=== PATIENT | female | born 1980 | race African-American/Black ===

== ENCOUNTER 2016-12-17 18:49 | Outpatient (CLI) | payer SELFPAY ==
--- NOTE | 2016-12-17 19:28 | Non Stress Test Report ---
Non Stress Test Datetime Report Generated by CPN: 12/17/2016 19:27 INDICATION Indication for Study: Decreased Movement; Ordered by Provider VITAL SIGNS Temperature - NST: 99.4 Pulse - NST: 88 RESP - NST: 18 NBPSYS NST: 132 NBPDIA NST: 76 MONITORING Monitor Explained: Monitor Explained; Test Explained; Patient Verbalized Understanding Time on Monitor: 12/17/2016 18:54 Time off Monitor: 12/17/2016 19:20 NST Duration: 26 NST INTERVENTIONS NST Interventions: Reposition Patient Physician Notified NST: Dr. Fox BABY A: [id number] BABY A Movement : Present Contraction Frequency : x1 FHR Baseline : 145 Accelerations : 15X15 Decelerations : None Variability : Moderate 6-25bpm NST Review: Meets Criteria for Reactive NST NST Review and Verified By : NATALEE Campbell NST Results: Reactive NST REPORT Report Trigger: Send Report
== END 2016-12-17 19:27 | disposition home or self-care (01) ==
LOC: LC 18:49
PROVIDERS: ATTEND Obstetrics & Gynecology
PROC: 4A1HXCZ Monitoring of Products of Conception, Cardiac Rate, External Approach (ICD-10-PCS; principal; 2016-12-17)
DX: O36.8130 Decreased fetal movements, third trimester, not applicable or unspecified (principal); O09.523 Supervision of elderly multigravida, third trimester; Z3A.38 38 weeks gestation of pregnancy
CPT/HCPCS: 59025

== ENCOUNTER 2016-12-20 15:40 | Outpatient (CLI) | payer OTHER ==
[2016-12-20 16:39] LABS: APPEARANCE,URINE CLEAR; BILIRUBIN,URINE NEGATIVE (NEGATIVE); GLUCOSE, URINE NEGATIVE (NEGATIVE); KETONES,URINE NEGATIVE (NEGATIVE); LEUKOCYTE ESTERASE,URINE NEGATIVE (NEGATIVE); NITRITE,URINE NEGATIVE (NEGATIVE); PROTEIN,URINE NEGATIVE (NEGATIVE); URINE SPECIFIC GRAVITY 1.012; UROBILINOGEN,URINE NEGATIVE mg/dL (<2.0)
[2016-12-20 16:54] LABS: URINE BARBITURATES SCREEN NEGATIVE; URINE METHADONE SCREEN NEGATIVE; URINE OPIATES LOW NEGATIVE; URINE PHENCYCLIDINE SCREEN NEGATIVE
== END 2016-12-20 17:12 | disposition home or self-care (01) ==
LOC: LC 15:40
PROVIDERS: ATTEND Obstetrics & Gynecology
PROC: 4A1HXCZ Monitoring of Products of Conception, Cardiac Rate, External Approach (ICD-10-PCS; principal; 2016-12-20)
DX: O09.523 Supervision of elderly multigravida, third trimester (principal); Z3A.39 39 weeks gestation of pregnancy
CPT/HCPCS: 59025; 80307; 81001

== ENCOUNTER 2016-12-27 12:40 | Outpatient (CLI) | payer OTHER ==
[2016-12-27 13:04] LABS: APPEARANCE,URINE SLIGHTLY-CLOUDY; BILIRUBIN,URINE NEGATIVE (NEGATIVE); GLUCOSE, URINE NEGATIVE (NEGATIVE); KETONES,URINE NEGATIVE (NEGATIVE); LEUKOCYTE ESTERASE,URINE TRACE (NEGATIVE); NITRITE,URINE NEGATIVE (NEGATIVE); PROTEIN,URINE NEGATIVE (NEGATIVE); URINE SPECIFIC GRAVITY 1.011; UROBILINOGEN,URINE NEGATIVE mg/dL (<2.0)
[2016-12-27 13:21] LABS: URINE BARBITURATES SCREEN NEGATIVE; URINE METHADONE SCREEN NEGATIVE; URINE OPIATES LOW NEGATIVE; URINE PHENCYCLIDINE SCREEN NEGATIVE
--- NOTE | 2016-12-27 13:30 | Non Stress Test Report ---
Non Stress Test Datetime Report Generated by CPN: 12/27/2016 13:29 DEMOGRAPHIC EGA NST: 40.2 EGA NST: 39.2 EGA NST: 38.6 INDICATION Indication for Study: Other Indication for Study (NST) Other: LC Indication for Study (NST) Other: LABOR CHECK MONITORING Monitor Explained: Monitor Explained; Test Explained; Patient Verbalized Understanding Monitor Explained: Monitor Explained; Test Explained; Patient Verbalized Understanding Time on Monitor: 12/27/2016 13:00 Time on Monitor: 12/20/2016 16:18 Time off Monitor: 12/27/2016 13:28 Time off Monitor: 12/20/2016 17:14 NST Duration: 28 NST Duration: 56 NST INTERVENTIONS NST Interventions: PO Hydration; Reposition Patient NST Interventions: PO Hydration; Reposition Patient Physician Notified NST: Dr Marshall Physician Notified NST: STRIP REVIEWED BY DR FALCON BABY A: [id number] BABY A Movement : Present Movement : Present Contraction Frequency : RARE FHR Baseline : 145 FHR Baseline : 140 Accelerations : 15X15 Accelerations : 15X15 Decelerations : None Decelerations : None Variability : Moderate 6-25bpm Variability : Moderate 6-25bpm NST Review: Meets Criteria for Reactive NST NST Review: Meets Criteria for Reactive NST NST Review and Verified By : Neli Moreno RN NST Review and Verified By : Herrera Landon RNC NST Results: Reactive NST Results: Reactive NST REPORT Report Trigger: Send Report
== END 2016-12-27 13:37 | disposition home or self-care (01) ==
LOC: LC 12:40
PROVIDERS: ATTEND Obstetrics & Gynecology
PROC: 4A1HXCZ Monitoring of Products of Conception, Cardiac Rate, External Approach (ICD-10-PCS; principal; 2016-12-27)
DX: O47.1 False labor at or after 37 completed weeks of gestation (principal); O09.523 Supervision of elderly multigravida, third trimester; Z3A.40 40 weeks gestation of pregnancy
CPT/HCPCS: 59025; 80307; 81005

== ENCOUNTER 2016-12-29 10:08 | Outpatient (CLI) | payer OTHER ==
--- NOTE | 2016-12-29 10:49 | Non Stress Test Report ---
Non Stress Test Datetime Report Generated by CPN: 12/29/2016 10:49 DEMOGRAPHIC EGA NST: 40.4 INDICATION Indication for Study: Decreased Movement; Ordered by Provider MONITORING Monitor Explained: Monitor Explained; Test Explained; Patient Verbalized Understanding Time on Monitor: 12/29/2016 10:20 Time off Monitor: 12/29/2016 10:44 NST Duration: 24 NST INTERVENTIONS NST Interventions: PO Hydration; Reposition Patient Physician Notified NST: Dr. Way BABY A: [id number] BABY A Movement : Present Contraction Frequency : none FHR Baseline : 145 Accelerations : 15X15 Decelerations : None Variability : Moderate 6-25bpm NST Review: Meets Criteria for Reactive NST NST Review and Verified By : Steph Wright RN NST Results: Reactive NST REPORT Report Trigger: Send Report
== END 2016-12-29 10:48 | disposition home or self-care (01) ==
LOC: LC 10:08
PROVIDERS: ATTEND Obstetrics & Gynecology
PROC: 4A1HXCZ Monitoring of Products of Conception, Cardiac Rate, External Approach (ICD-10-PCS; principal; 2016-12-29)
DX: O36.8130 Decreased fetal movements, third trimester, not applicable or unspecified (principal); Z3A.40 40 weeks gestation of pregnancy
CPT/HCPCS: 59025

== ENCOUNTER 2017-01-02 19:46 | Inpatient (IN) | payer OTHER ==
[2017-01-02] MEDS ORDERED: ZOLPIDEM TARTRATE 5 MG TABLET PO PRN (20:02)
[2017-01-02] MEDS ORDERED: MAG HYDROX/AL HYDROX/SIMETH SUSP 30 ML UDCUP PO PRN (20:02)
[2017-01-02] MEDS ORDERED: ACETAMINOPHEN 325 MG TABLET PO PRN (20:02)
[2017-01-02] MEDS ORDERED: DINOPROSTONE 10 MG VAGINAL INSERT.SR PV PRN (20:04)
[2017-01-02] MEDS ORDERED: DINOPROSTONE 10 MG VAGINAL INSERT.SR PV ONE (20:45)
[2017-01-02] MEDS ORDERED: RINGERS SOLUTION,LACTATED 300 ML IV ONE (20:45)
[2017-01-02] MEDS ORDERED: DINOPROSTONE 10 MG VAGINAL INSERT.SR ONE (20:49)
[2017-01-02] MEDS ORDERED: PENICILLIN G POTASSIUM 5,000,000 UNIT in DEXTROSE 5%-WATER 100 ML IV ONE (21:00)
[2017-01-02 21:07] LABS: ABSOLUTE EOSINOPHILS # (AUTO) 0.1 10^3/uL (0.0-0.6); ABSOLUTE LYMPHOCYTES (AUTO) 1.5 10^3/uL (0.5-4.7); ABSOLUTE MONOCYTES (AUTO) 0.8 10^3/uL (0.1-1.4); ABSOLUTE NEUT (AUTO) 3.8 10^3/uL (1.7-8.2); BASOPHILS % (AUTO) 0.6 % (0-2); EOSINOPHILS % (AUTO) 1.7 % (0-6); HEMATOCRIT 33.6 % (36.0-47.0); HEMOGLOBIN 10.4 g/dL (12.0-15.5); HGB HCT DIFFERENCE -2.4; MEAN CORPUSCULAR HEMOGLOBIN 22.2 pg (27.0-33.4); MEAN CORPUSCULAR HGB CONC 30.9 g/dL (32.0-36.0); MEAN CORPUSCULAR VOLUME 72 fl (80-97); MONOCYTES % (AUTO) 12.4 % (3-13); RED BLOOD COUNT 4.69 10^6/uL (3.72-5.28); RED CELL DISTRIBUTION WIDTH 30.7 % (11.5-14.0); SEGMENTED NEUTROPHILS % (AUTO) 61.3 % (42-78); WHITE BLOOD COUNT 6.2 10^3/uL (4.0-10.5)
[2017-01-02 21:18] LABS: APPEARANCE,URINE CLOUDY; BILIRUBIN,URINE NEGATIVE (NEGATIVE); GLUCOSE, URINE NEGATIVE (NEGATIVE); KETONES,URINE NEGATIVE (NEGATIVE); LEUKOCYTE ESTERASE,URINE TRACE (NEGATIVE); NITRITE,URINE NEGATIVE (NEGATIVE); PROTEIN,URINE 30 mg/dL (NEGATIVE); URINE SPECIFIC GRAVITY 1.027; UROBILINOGEN,URINE NEGATIVE mg/dL (<2.0)
[2017-01-02 21:19] LABS: ANISOCYTOSIS 4+; BURR CELLS SLIGHT; HYPOCHROMASIA 1+; MICROCYTOSIS 1+; OVALOCYTES 1+; PLATELET CLUMPS PRESENT; POIKILOCYTOSIS SLIGHT; POLYCHROMASIA SLIGHT; TARGET CELLS SLIGHT; TEAR DROP CELLS 1+
[2017-01-02 21:35] LABS: URINE BARBITURATES SCREEN NEGATIVE; URINE METHADONE SCREEN NEGATIVE; URINE OPIATES LOW NEGATIVE; URINE PHENCYCLIDINE SCREEN NEGATIVE
[2017-01-02] MEDS ORDERED: ZOLPIDEM TARTRATE 5 MG TABLET ONE (23:12)
[2017-01-03] MEDS ORDERED: PENICILLIN G-K 5 MILLION UNIT VIAL IV PRN
[2017-01-03] MEDS ORDERED: PENICILLIN G POTASSIUM 2,500,000 UNIT in DEXTROSE 5%-WATER 50 ML IV SCH (01:00)
[2017-01-03] MEDS: RINGERS SOLUTION,LACTATED 1,000 ML IV PRN ×2 (04:08→23:19)
[2017-01-03] MEDS ORDERED: PENICILLIN G-K 5 MILLION UNIT VIAL ONE ×4 (08:47→22:24)
[2017-01-03] MEDS ORDERED: OXYTOCIN/NORMAL SALINE 20 UNIT/1,000 ML RTUINJ ONE (08:47)
[2017-01-03] MEDS ORDERED: EPHEDRINE SULFATE INJ 50 MG/1 ML AMPULE ONE (13:35)
[2017-01-03] MEDS ORDERED: BUPIVACAINE HCL 0.25 % INJ/PF (2.5 MG/1 ML) 30 ML VIAL ONE (13:36)
[2017-01-03] MEDS ORDERED: FENTANYL/BUPIVACAINE/NS/PF 200 MCG/100 ML RTUINJ EPI ONE (13:36)
[2017-01-03] MEDS ORDERED: MISOPROSTOL 0.2 MG TABLET ONE (15:30)
[2017-01-03] MEDS ORDERED: LIDOCAINE 1% INJ-PF (10 MG/ML) 30 ML SDV ONE (15:30)
--- NOTE | 2017-01-03 15:49 | L&D Progress Notes ---
PROGRESS NOTES Datetime Report Generated by CPN: 01/03/2017 15:49 PROGRESS NOTE Impression: Reassuring Heart Rate Procedures: Intrauterine Pressure Catheter; Sterile Vag Exam Plan: Continue Present Management Comment: SVE as above. AROM clear fluid. Comfortable w epidural. VAGINAL EXAM Dilatation: 4 Dilatation: 1 Effacement: 50 Effacement: 50 Station: -2 Station: -2 MEMBRANES Pooling: Negative Membranes: Ruptured Membranes: Intact Amniotic Fluid Color: Clear FETUS A FHR - Baseline: 150 Monitoring: External US Variability: Marked >25bpm Accelerations: 15X15 Decelerations: Variable FHR Category: Category I : 41.2 : 41.0 SIGNATURE SIGNATURE: ,[id number];,[id number] SIGNATURE: [id number] SIGNATURE: ,[id number] SIGNATURE: [id number] Assignment: Jose Way DO Signature: with User ID: [email or web address] : with User ID: [email or web address] : I personally evaluated and examined the patient in conjunction with the MLP and agree with the assessment, treatment plan and disposition.
[2017-01-03] MEDS ORDERED: LIDOCAINE 2% INJ-PF (20 MG/ML) 10 ML AMPUL ONE (16:56)
[2017-01-03] MEDS ORDERED: DIPHENHYDRAMINE HCL 50 MG/ML VIAL ONE (18:50)
[2017-01-03] MEDS ORDERED: METHYLERGONOVINE MALEATE INJ/PF 0.2 MG/1 ML AMPULE ONE (19:32)
[2017-01-03] MEDS ORDERED: FENTANYL CITRATE INJ/PF 100 MCG/2 ML AMPUL ONE (19:46)
[2017-01-03] MEDS ORDERED: NALBUPHINE HCL INJ 10 MG/1 ML AMPULE ONE (21:08)
[2017-01-03] MEDS: PENICILLIN G-K 5 MILLION UNIT VIAL IV SCH ×2 (21:16→23:06)
[2017-01-04] MEDS: PENICILLIN G-K 5 MILLION UNIT VIAL IV SCH (02:24)
[2017-01-04] MEDS ORDERED: MISOPROSTOL 0.2 MG TABLET PR ONE (02:30)
[2017-01-04] MEDS ORDERED: BENZOCAINE/MENTHOL AEROSOL SPRAY 56 ML TOP PRN (03:33)
[2017-01-04] MEDS ORDERED: PROMETHAZINE HCL INJ 25 MG/1 ML VIAL IV PRN (03:33)
[2017-01-04] MEDS ORDERED: ACETAMINOPHEN 650 MG SUPP.RECT PR PRN (03:33)
[2017-01-04] MEDS ORDERED: PSEUDOEPHEDRINE HCL 30 MG TABLET PO PRN (03:33)
[2017-01-04] MEDS ORDERED: PROMETHAZINE HCL 25 MG SUPP.RECT PR PRN (03:33)
[2017-01-04] MEDS ORDERED: NA PHOS,M-B/NA PHOS,DI-BA (ADULT) 133 ML ENEMA PR PRN (03:33)
[2017-01-04] MEDS ORDERED: OXYTOCIN/NORMAL SALINE 1,000 ML IV PRN (03:33)
[2017-01-04] MEDS ORDERED: DIBUCAINE 1% OINTMENT 28 GM TP PRN (03:33)
[2017-01-04] MEDS ORDERED: PROMETHAZINE HCL 25 MG TABLET PO PRN (03:33)
[2017-01-04] MEDS ORDERED: ZOLPIDEM TARTRATE 5 MG TABLET PO PRN (03:33)
[2017-01-04] MEDS ORDERED: GLYCERIN/WITCH HAZEL LEAF 1 EACH MED..PAD TP PRN (03:33)
[2017-01-04] MEDS ORDERED: MEASLES,MUMPS&RUBELLA VACC/PF 0.5 ML VIAL SUBCUT PRN (03:33)
[2017-01-04] MEDS ORDERED: DIPHENHYDRAMINE HCL 25 MG CAPSULE PO PRN (03:33)
[2017-01-04] MEDS ORDERED: DIPH/PERTUSS(ACELL)/TETANUS VAC/PF 0.5 ML SYR (>=10YO) IM PRN (03:33)
[2017-01-04] MEDS ORDERED: MAGNESIUM HYDROXIDE SUSP 30 ML UDCUP PO PRN (03:33)
--- NOTE | 2017-01-04 04:09 | Admission Physical ---
Datetime Report Generated by CPN: 01/04/2017 04:09 CURRENT ADMISSION Chief Complaint: Scheduled Induction of Labor Indication for Induction: Post Dates Admit Plan: Admit to Unit; Initiate Labor Induction Protocol ALLERGIES Medication Allergies: No Medication Allergies: No Known Allergies (01/02/2017) Medication Allergies: No Known Allergies (12/29/2016) Medication Allergies: No Known Allergies (12/20/2016) Medication Allergies: No Known Allergies (09/30/2010) Latex: No Latex Allergies Food Allergies: N/A Environmental Allergies: N/A OBSTETRICAL HISTORY EDC: 12/25/2016 00:00 : 9 Para: 4 Term: 4 : 0 SAB: 1 IAB: 3 Ectopic: 0 Livin Cesareans: 0 VBACs: 0 Multiple Births: 0 Gestational Diabetes: No Rh Sensitization: No Incompetent Cervix: No LUIGI: No Infertility: No ART Treatment: No Uterine Anomaly: No IUGR: No Hx Previous C/S: No Macrosomia: No Hx Loss/Stillborn: No PIH: No Hx : No Placenta Previa/Abruption: No Depression/PP Depression: No PTL/PROM: No Post Hemorrhage: No Current Procedures: Ultrasound; NST Obstetrical History Comments: G1:IAB 17yo G2:SAB G3: 2000 G4: IAB G5: 2002 G6: 2003 G7: 2009 G8: IAB G9: current SEE RECORDS Alcohol: No Marijuana : No Cocaine: No Other Illicit Drugs: No Cigarettes: Never Smoker. [id number] MEDICAL HISTORY Diabetes: No Blood Transfusion: No Pulmonary Disease (Asthma, TB): Yes Breast Disease: No Hypertension: No Bar Manager Surgery: No Heart Disease: No Hosp/Surgery: No Autoimmune Disorder: No Anesthetic Complications: No Kidney Disease: No Abnormal Pap Smear: No Neuro/Epilepsy: No Psychiatric Disorders: Yes Other Medical Diseases: No Hepatitis/Liver Disease: No Significant Family History: No Varicosities/Phlebitis: No Trauma/Violence : No Thyroid Dysfunction: No Medical History Comments: childhood asthma, PTSD (tragedy 2 years ago) takes Buspar INFECTIOUS HISTORY Gonorrhea: No Genital Herpes: No Chlamydia: Yes Tuberculosis: No Syphilis: No Hepatitis: No HIV/AIDS Exposure: No Rash or Viral Illness: No HPV: No Infectious History Comments: 2010 Chlamydia and genital warts PHYSICAL EXAM General: Normal HEENT: Normal Neurologic: Normal Thyroid: Normal Heart: Normal Lungs: Normal Breast: Deferred Back: Normal Abdomen: Normal Genitourinary Exam: Normal Extremities: Normal DTRs: Normal Pelvic Type: Adequate Vital Signs: Reviewed VAGINAL EXAM Dilatation: 4 Dilatation: 1 Effacement: 50 Effacement: 50 Station: -2 Station: -2 MEMBRANES Pooling: Negative Membranes: Ruptured Membranes: Intact Amniotic Fluid Color: Clear FETUS A EGA: 41.1 FHR- Baseline: 160 Variability: Moderate 6-25bpm Accelerations: 15X15 Decelerations: None FHR Category: Category I Admit Comment: gbs pos PLANS FOR LABOR AND DELIVERY Labor and Delivery: None Pain Management: Epidural Feeding Preference: Both Benefit of Breast Feed Discussed: Yes Circumcision: Yes INFORMED CONSENT Signature: with User ID: [email or web address] : I personally evaluated and examined the patient in conjunction with the MLP and agree with the assessment, treatment plan and disposition.
[2017-01-04] MEDS: ACETAMINOPHEN WITH CODEINE #3 TABLET PO PRN ×4 (04:18→21:29)
--- NOTE | 2017-01-04 04:34 | Delivery Summary ---
Del Sum A-C Datetime Report Generated by CPN: 01/04/2017 04:33 DELIVERY PERSONNEL DELIVERY PERSONNEL: [id number];[id number];[phone];[id number] Delivery Doctor:: Jose Way DO Labor and Delivery Nurse:: Yoon Kessler RN Labor and Delivery Nurse:: Michelle Goldsmith RN Soft Shoe Dancer/INSURANCE RISK SURVEYOR: Mendel Sapp CNA MATERNAL INFORMATION Delivery Anesthesia: Epidural Medications After Delivery: Pitocin Bolus-Please Comment; Pitocin Drip 20 Units/1000ml NSS; Methergine 0.2mg IM Meds After Delivery Comment: cytotec 1000mcg DC Estimated Blood Loss (ml): 250 Provider Comments: of viable male infant in OA position Loose Nuchal cord x1, easily reduced Placenta delievered spontaneous and intact with 3v cord Fundus firm after Methergine and Cytotec LABOR SUMMARY EDC: 12/25/2016 00:00 No. Babies in Womb: 1 Attempted: No Labor Anesthesia: Epidural LABOR INFORMATION Reason for Induction: Post Dates Onset of Labor: 01/03/2017 15:40 Complete Dilatation: 01/03/2017 23:46 Cervical Ripening Agents: Cervidil Oxytocin: Induction Group B Beta Strep: Positive Antibiotics # of Doses: 4 Antibiotics Time of Last Dose: 0 Name of Antibiotic Given: PCN Steroids Given: None Reason Steroids Not Administered: Not Applicable MEMBRANES Membranes Rupture Method: Artificial Rupture of Membranes: 01/03/2017 15:40 Length of Rupture (hr): 10.25 Amniotic Fluid Color: Clear Amniotic Fluid Amount: Small Amniotic Fluid Odor: Normal STAGES OF LABOR Stage 1 hr: 8 Stage 1 min: 6 Stage 2 hr: 2 Stage 2 min: 9 Stage 3 hr: 0 Stage 3 min: 4 Total Time in Labor hr: 10 Total Time in Labor min: 19 VAGINAL DELIVERY Episiotomy: None Laceration Extension: First Degree Laceration Type: Perineal; Periurethral Laceration Repair: Yes Laceration Repair Note: repaired with 3-0 chromic in usual fashion with good hemostasis Sponge Count Correct: N/A Sharps Count Correct: Yes CSECTION DELIVERY Primary Indication: N/A Secondary Indication: N/A CSection Incidence: N/A Labor: N/A Elective: N/A CSection Incision: N/A BABY A INFORMATION Infant Delivery Date/Time: 01/04/2017 01:55 Method of Delivery: Vaginal Born in Route : No : N/A Forceps: N/A Vacuum Extraction: N/A Shoulder Dystocia : No PRESENTATION/POSITION BABY A Presentation: Cephalic Cephalic Presentation: Vertex Vertex Position: OA Breech Presentation: N/A PLACENTA INFORMATION BABY A Placenta Delivery Time : 01/04/2017 01:59 Placenta Method of Delivery: Spontaneous Placenta Status: Delivered SCORES BABY A Heart Rate 1 min: >100 bpm Resp Effort 1 min: Good Cry Reflex Irritability 1 min: Cough or Sneeze or Pulls Away Muscle Tone 1 min: Active Motion Color 1 min: Body [place], Extremities Blue SCORE 1 MIN: 9 Heart Rate 5 min: >100 bpm Resp Effort 5 min: Good Cry Reflex Irritability 5 min: Cough or Sneeze or Pulls Away Muscle Tone 5 min: Active Motion Color 5 min: Body [place], Extremities Blue SCORE 5 MIN: 9 INFANT INFORMATION BABY A Gestational Age at Delivery: 41.3 Gestational Status: Late Term- 41- 41.6 Weeks Infant Outcome : Liveborn Condition : Stable Sex: Male IDENTIFICATION BABY A Infant Verification Date/Time: 01/04/2017 02:04 ID Band Number: [id number] Mother's Name Verified: Yes Infant RN Verifying : B Goldsmith, RN Additional Verifying Personnel: O [facility], RN WEIGHT/LENGTH BABY A Infant Birthweight (gm): 3880 Weight (lb): 8 Weight (oz): 9 Infant Length (in): 21.00 Length (cm): 53.34 CORD INFORMATION BABY A No. Cord Vessels: 3 Nuchal Cord : Around Neck x1, Loose Cord Blood Taken: Yes-For Eval (Mom's Blood Type - or O+) Suction: None ASSESSMENT BABY A Complications: Multiple Variable Decels Physical Findings at Delivery: Caput Succedaneum; Molding of the Head Infant Respirations: Appears Normal College Athlete/ALS Called : No Care By: B Agus, NATALEE and K NATALEE Negron Transferred To: Remains with Mother BABY B INFORMATION : N/A SIGNATURES Signature: with User ID: [email or web address] : I personally evaluated and examined the patient in conjunction with the MLP and agree with the assessment, treatment plan and disposition.
[2017-01-04] MEDS: IBUPROFEN 800 MG TABLET PO SCH ×3 (05:01→21:30)
[2017-01-04] MEDS: FERROUS SULFATE 325 MG TABLET PO SCH ×2 (09:36→18:36)
[2017-01-04] MEDS: DOCUSATE SODIUM 100 MG CAPSULE PO SCH ×2 (09:37→18:24)
[2017-01-04] MEDS: SENNOSIDES/DOCUSATE 8.6-50 MG 1 EACH TABLET PO SCH (09:38)
[2017-01-04] MEDS: PRENATAL VITAMIN W-O CA NO5/FE FUMARATE/FA CAPSULE PO SCH (09:43)
[2017-01-04] MEDS: FAMOTIDINE 20 MG TABLET PO SCH ×2 (09:43→21:30)
[2017-01-05] MEDS: IBUPROFEN 800 MG TABLET PO SCH ×3 (06:21→22:39)
[2017-01-05 06:34] LABS: HEMATOCRIT 30.5 % (36.0-47.0); HEMOGLOBIN 9.2 g/dL (12.0-15.5); HGB HCT DIFFERENCE -2.9; MEAN CORPUSCULAR HEMOGLOBIN 22.3 pg (27.0-33.4); MEAN CORPUSCULAR HGB CONC 30.3 g/dL (32.0-36.0); MEAN CORPUSCULAR VOLUME 74 fl (80-97); RED BLOOD COUNT 4.15 10^6/uL (3.72-5.28); RED CELL DISTRIBUTION WIDTH 30.3 % (11.5-14.0)
[2017-01-05 07:08] LABS: WHITE BLOOD COUNT 13.4 10^3/uL (4.0-10.5)
--- NOTE | 2017-01-05 09:20 | PDOC PROGRESS REPORT ---
Subjective-OB Subjective: Post Delivery Day:1 36 year old. Denies any needs at this time, states voiding without difficulty, lochia is stable, pain well controlled. Physical Exam (OB) Vital Signs: Temp Pulse Resp BP Pulse Ox 97.5 F 72 16 109/40 L 100 01/05/17 07:33 01/05/17 07:33 01/05/17 07:33 01/05/17 07:33 01/05/17 07:33 Intake & Output 01/04/17 01/05/17 01/06/17 06:59 06:59 06:59 Intake Total 500 300 Balance 500 300 - PIH/Pre-Eclampsia DTR's: 2 + Clonus: Negative Headache: Absent Epigastric Pain: No Visual Changes: No - Lochia Lochia Amount: Scant < 10 ml Lochia Color: Rubra/Red - Abdomen Description: Tender, Soft, Round Hernia Present: No Fundal Description: Firm, Midline Fundal Height: u/u - u/2 Objective-Diagnostic Laboratory: 01/05/17 06:12 01/05/17 06:12 WBC 13.4 H D RBC 4.15 Hgb 9.2 L Hct 30.5 L MCV 74 L MCH 22.3 L MCHC 30.3 L RDW 30.3 H Plt Count 128 L Assessment and Plan(PN) - Assessment and Plan (1) Vaginal delivery Is this a current diagnosis for this admission?: YesPlan: routine care (2) History of posttraumatic stress disorder (PTSD) Is this a current diagnosis for this admission?: YesPlan: d/c planning - Time Spent with Patient Time with patient: Less than 15 minutes Critical Time spent with patient: Less than 15 minutes Medications reviewed and adjusted accordingly: Yes - Disposition Anticipated Discharge: Home Within: within 24 hours
[2017-01-05] MEDS: SENNOSIDES/DOCUSATE 8.6-50 MG 1 EACH TABLET PO SCH (09:21)
[2017-01-05] MEDS: DOCUSATE SODIUM 100 MG CAPSULE PO SCH ×2 (09:22→18:03)
[2017-01-05] MEDS: FAMOTIDINE 20 MG TABLET PO SCH ×2 (09:31→22:45)
[2017-01-05] MEDS: FERROUS SULFATE 325 MG TABLET PO SCH ×2 (09:31→19:07)
[2017-01-05] MEDS: PRENATAL VITAMIN W-O CA NO5/FE FUMARATE/FA CAPSULE PO SCH (09:31)
[2017-01-05] MEDS: ACETAMINOPHEN WITH CODEINE #3 TABLET PO PRN ×2 (14:00→21:34)
[2017-01-06] MEDS: IBUPROFEN 800 MG TABLET PO SCH ×2 (06:30→14:13)
[2017-01-06 08:07] VITALS: BP 126/69
--- NOTE | 2017-01-06 09:31 | PDOC PROGRESS REPORT ---
Subjective-OB Subjective: Post Delivery Day: 36 year old. Denies any needs at this time Doing well, ready to go home, OOB, breast/bottle feeding, voiding, scant bleeding Physical Exam (OB) Vital Signs: Temp Pulse Resp BP Pulse Ox 98.0 F 73 16 126/69 H 100 01/06/17 07:28 01/06/17 07:28 01/06/17 07:28 01/06/17 07:28 01/06/17 07:28 Intake & Output 01/05/17 01/06/17 01/07/17 06:59 06:59 06:59 Intake Total 500 300 Balance 500 300 - PIH/Pre-Eclampsia DTR's: 2 + Clonus: Negative Headache: Absent Epigastric Pain: No Visual Changes: No - Lochia Lochia Amount: Small 10-25 ml Lochia Color: Rubra/Red - Abdomen Description: Soft, Round Hernia Present: No Fundal Description: Firm, Midline Fundal Height: u/u - u/2 Objective-Diagnostic Laboratory: 01/05/17 06:12 Assessment and Plan(PN) - Assessment and Plan (1) Vaginal delivery Is this a current diagnosis for this admission?: Yes (2) History of posttraumatic stress disorder (PTSD) Is this a current diagnosis for this admission?: Yes - Time Spent with Patient Time with patient: Less than 15 minutes Medications reviewed and adjusted accordingly: Yes - Disposition Anticipated Discharge: Home Within: Other - home today
[2017-01-06] MEDS: ACETAMINOPHEN WITH CODEINE #3 TABLET PO PRN (09:38)
[2017-01-06] MEDS: DOCUSATE SODIUM 100 MG CAPSULE PO SCH (09:38)
--- NOTE | 2017-01-06 09:38 | PDOC DISCHARGE SUMMARY ---
Final Diagnosis Discharge Date: 01/06/17 - Final Diagnosis (1) Vaginal delivery Is this a current diagnosis for this admission?: Yes (2) History of posttraumatic stress disorder (PTSD) Is this a current diagnosis for this admission?: Yes Discharge Data - Discharge Medication Home Medications: Buspirone HCl [Buspar 5 mg Tablet] 1 tab PO PRN PRN 12/20/16 Ferrous Sulfate [Iron] 325 mg PO BID 12/20/16 Vit #105/Iron/FA/Dha [Prena1 True Combo Pack] 1 tab PO DAILY 12/20/16 Ibuprofen [Motrin 800 mg Tablet] 800 mg PO Q8 #60 tablet 01/06/17 Pnv W-O Ca No5/Fe Fumarate/FA [-U Multiple Vitamin Capsule] 1 cap PO DAILY #0 capsule 01/06/17 Gestational Age: 41.3 Reason(s) for Admission: Onset of Labor, Induction of Labor, Group B Strep Positive Procedures: NST, Ultrasound Intrapartum Procedure(s): Spontaneous Vaginal Delivery Intrapartum Procedure Note: multiple variables, caput, molding of head Complication(s): Laceration-Perineal, Laceration-Periurethral Laceration-Degree: 1st - [place] Data Baby 1 Male at 1 minute: 9 at 5 minutes: 9 Weight: 3.884 kg Home with Mother: Yes Complications: No - Diagnosis Test Laboratory: Temp Pulse Resp BP Pulse Ox 98.0 F 73 16 126/69 H 100 01/06/17 07:28 01/06/17 07:28 01/06/17 07:28 01/06/17 07:28 01/06/17 07:28 01/02/17 01/02/17 01/05/17 20:00 20:35 06:12 RBC 4.69 4.15 Hgb 10.4 L 9.2 L Hct 33.6 L 30.5 L Urine Opiates Screen NEGATIVE - Discharge information/Instructions Discharge Activity: Activity As Tolerated, No Lifting Over 10 Pounds, No Lifting /Push/Pulling Discharge Diet: As Tolerated Disposition: HOME, SELF-CARE Follow up with: [facility] in: 4, Weeks
[2017-01-06] MEDS: SENNOSIDES/DOCUSATE 8.6-50 MG 1 EACH TABLET PO SCH (09:39)
[2017-01-06] MEDS: PRENATAL VITAMIN W-O CA NO5/FE FUMARATE/FA CAPSULE PO SCH (11:32)
[2017-01-06] MEDS: FERROUS SULFATE 325 MG TABLET PO SCH (11:32)
[2017-01-06] MEDS: FAMOTIDINE 20 MG TABLET PO SCH (11:32)
== END 2017-01-06 16:40 | disposition home or self-care (01) | DRG 775 ==
LOC: LR 19:46 → 2S 01-04 04:00
PROVIDERS: ADMIT Obstetrics & Gynecology; ATTEND Obstetrics & Gynecology
PROC: 3E0P7GC Introduction of Other Therapeutic Substance into Female Reproductive, Via Natural or Artificial Opening (ICD-10-PCS; 2017-01-02)
PROC: 10H07YZ Insertion of Other Device into Products of Conception, Via Natural or Artificial Opening (ICD-10-PCS; 2017-01-03)
PROC: 4A1H7CZ Monitoring of Products of Conception, Cardiac Rate, Via Natural or Artificial Opening (ICD-10-PCS; 2017-01-03)
PROC: 10E0XZZ Delivery of Products of Conception, External Approach (ICD-10-PCS; principal; 2017-01-04)
PROC: 0UQMXZZ Repair Vulva, External Approach (ICD-10-PCS; 2017-01-04)
PROC: 0HQ9XZZ Repair Perineum Skin, External Approach (ICD-10-PCS; 2017-01-04)
DX: O48.0 Post-term pregnancy (principal); O99.343 Other mental disorders complicating pregnancy, third trimester; O76 Abnormality in fetal heart rate and rhythm complicating labor and delivery; O99.824 Streptococcus B carrier state complicating childbirth; F43.10 Post-traumatic stress disorder, unspecified; Z3A.41 41 weeks gestation of pregnancy; O69.81X0 Labor and delivery complicated by cord around neck, without compression, not applicable or unspecified; O70.0 First degree perineal laceration during delivery; O71.82 Other specified trauma to perineum and vulva; Z37.0 Single live birth
CPT/HCPCS: 36415; 80307; 81005; 85025; 85027; 86592; 86850; 86900; 86901; J1200; J2210; J2300; J2540; J2590; J3010; J3490